=== PATIENT | male | born 1985 | race Caucasian/White ===

== ENCOUNTER 2020-05-31 23:37 | Observation (INO) ==
[2020-05-31] MEDS ORDERED: *HR* LORazepam 2 MG/ML VIAL IM ONE (23:54)
[2020-06-01 00:22] LABS: Bilirubin,Urine Negative (Negative); Blood,Urine Negative (Negative); Clarity,Urine Clear (Clear); Color,Urine Light-Yellow (Yellow); Glucose,Urine (UA) Normal (Normal); Ketones,Urine Negative (Negative); Leukocyte Esterase,Urine Negative (Negative); Nitrite,Urine Negative (Negative); Protein,Urine Trace mg/dL (Neg-Trace); Specific Gravity,Urine 1.011 (1.010-1.025); Urobilinogen,Urine Normal (Normal)
[2020-06-01 00:32] LABS: Basophils # 0.2 K/mcL (0.0-0.2); Basophils % 2.2 %; Eosinophils # 0.2 K/mcL (0.0-0.6); Eosinophils % 2.7 %; Hematocrit 47.7 % (37.5-50.1); Hemoglobin 15.5 g/dL (12.9-16.9); Immature Granulocytes % 0.5 % (0-4); Lymphocytes # 2.5 K/mcL (0.6-4.6); Lymphocytes % 31.9 %; Mean Corpuscular HGB Conc 32.5 g/dL (31.6-35.5); Mean Corpuscular Hemoglobin 29.9 pg (28.0-33.3); Mean Corpuscular Volume 92.1 fL (83.0-100.0); Mean Platelet Volume 9.7 fL (9.4-12.4); Monocytes # 1.1 K/mcL (0.0-1.3); Neutrophils # 3.8 K/mcL (1.6-8.9); Platelet Count 266 K/mcL (140-400); Red Blood Count 5.18 M/mcL (4.19-5.50); Red Cell Distribution Width 15.3 % (11.5-14.5); Segmented Neutrophils % 48.7 %; White Blood Count 7.8 K/mcL (4.3-11.1)
[2020-06-01 00:34] LABS: Amphetamine Screen,Urine Negative ng/mL (Cutoff=1000); Barbiturate Screen,Urine Negative ng/mL (Cutoff=200); Benzodiazepines Screen,Urine Negative ng/mL (Cutoff=200); Cannabinoid Screen,Urine Positive ng/mL (Cutoff = 50); Cocaine Screen,Urine Negative ng/mL (Cutoff= 300); Opiate Screen,Urine Negative ng/mL (Cutoff=300); Phencyclidine Screen,Urine Negative ng/mL (Cutoff=25)
[2020-06-01 00:46] LABS: Acetaminophen < 10 mcg/mL (10-20); Alanine Aminotransferase 57 Units/L (7-52); Albumin 4.5 g/dL (3.5-5.7); Albumin/Globulin Ratio 1.5 (1.1-2.2); Alkaline Phosphatase 45 Units/L (34-104); Aspartate Amino Transferase 78 Units/L (13-39); BUN/Creatinine Ratio 6 (6-26); Bilirubin,Direct 0.1 mg/dL (0.0-0.2); Bilirubin,Indirect 0.4 mg/dL (0.0-1.0); Bilirubin,Total 0.5 mg/dL (0.3-1.0); Blood Urea Nitrogen 4 mg/dL (6-20); Calcium 8.7 mg/dL (8.6-10.3); Carbon Dioxide 22 mEq/L (23-29); Chloride 103 mEq/L (98-107); Ethanol 320 mg/dL (Less than 10); Glucose 93 mg/dL (70-105); Osmolality,Calculated 283 (280-300); Potassium 4.1 mEq/L (3.5-5.1); Salicylate < 2.5 mg/dL (15.0-30.0); Sodium 138 mEq/L (136-145); Total Protein 7.5 g/dL (6.4-8.9); eGFR For African Americans > 60 (> 60); eGFR For Non-African Americans > 60 (> 60)
[2020-06-01] MEDS ORDERED: Ziprasidone 20 MG in Water for inj. (sterile) 1 ML IM ONE (01:00)
[2020-06-01] MEDS ORDERED: *HR* LORazepam 2 MG/ML VIAL IVP PRN ×3 (02:18)
[2020-06-01 03:46] VITALS: BP 106/70
[2020-06-01] MEDS ORDERED: Ipratropium/Albuterol Neb 3 ML IH PRN (09:28)
[2020-06-01] MEDS ORDERED: Thiamine (B-1) 100 MG, Folic Acid 1 MG, MVI, adult with vitamin K 10 ML in 0.9 % Sodi... IVPB SCH (18:00)
== END 2020-06-01 13:14 | disposition home or self-care (01) ==
LOC: 3BNU 23:37 → EMEROOARM 23:37 → SUATTDRO 06-01 02:57 → 3BNU 06-01 03:19
PROVIDERS: ADMIT Internal Medicine; ATTEND Family Medicine